=== PATIENT | male | born 1950 | race Caucasian/White ===

== ENCOUNTER 2024-06-03 10:49 | Emergency (ER) | payer BC, SELFPAY ==
--- NOTE | ~2024-06-03 | XR_ITS ---
EXAMINATION: XR chest 2V DATE: 06/03/2024 15:08 INDICATION: Cough. TECHNIQUE: Frontal and lateral views of the chest were obtained. COMPARISON: None. FINDINGS: There are airspace opacities at left lung base. No pleural effusion or pneumothorax. The he art size is normal. IMPRESSION: 1. Airspace opacities at left lung base, consistent with atelectasis versus pneumonia. Reviewed, dictated and finalized at location A. [facility] IMPRESSION: 1. Airspace opacities at left lung base, consistent with atelectasis versus pne umonia.
[2024-06-03 10:51] VITALS: BP 137/68; PULSE 76; RESP 16; TEMP 36.6; O2SAT 99
--- NOTE | 2024-06-03 14:10 | ECG_ITS ---
Test Date: 2024-06-03 15:20:26 Measurements Intervals [place] Rate: 66 P: 7 [place]: 209 QRS: 2 QRSD: 114 T: 6 QT: 318 QTc: 335 Interpretive Statements SINUS RHYTHM LOW QRS VOLTAGE IN PRECORDIAL LEADS [QRS DEFLECTION < 1.0 mV IN CHEST LEADS] No previous ECG available for comparison Electronically Signed On 06-07-2024 14:34:08 PILOT SUPERVISOR by Rodolfo Cadena M.D.
--- NOTE | 2024-06-03 14:12 | ED_ITS ---
HPI - URI/Sore Throat General Chief Complaint: Upper Respiratory Infection <Angela Ernst PA-C - Last Filed: 06/03/24 14:13> Stated Complaint: COUGH,CONGESTION X 1WK <Angela Ernst PA-C - Last Filed: 06/03/24 14:13> Time Seen by Provider: 06/03/24 14:49 <Angela Ernst PA-C - Last Filed: 06/03/24 14:13> Focused HPI: 74-year-old male presents to emergency department for URI sx x5 days. Patient is reporting a productive cough and coughing since the cause him to be short of breath. Alsp reported localized body aches. No fevers. Denies chest pain or lower extremity edema. States he has been around his sister who is sick with similar symptoms. GENERAL: Well-appearing, well-nourished, and in no acute distress. HEAD: Normocephalic, atraumatic. CHEST: Clear to auscultation. ?No respiratory distress. HEART: Regular rate and rhythm.? NEURO: ?Alert and oriented x3. Patient screened in triage and initial orders placed.? ?Additional care and disposition to be based upon?diagnostic testing and treatment. <Angela Ernst PA-C - Last Filed: 06/03/24 14:13> Source: patient and family () <Kassi Abdullahi MD - Last Filed: 06/06/24 18:08> Mode of arrival: ambulatory <Kassi Abdullahi MD - Last Filed: 06/06/24 18:08> Limitations: no limitations <Kassi Abdullahi MD - Last Filed: 06/06/24 18:08> History of Present Illness HPI Narrative: Agree with the above with the following additions/corrections: No sore throat. At times it was difficult for him to catch his breath after coughing because he was coughin gup a lot of phaglem. This made him briefly short of breath at times. Also having myalgias. He was feeling weak. Tried AlkaSeltzer severe cold. No chest pain or edema. + sick contact (his sister). On very few medications. Only lisinopril-HCTZ and a statin. History of kidney stone (but no kidney dysfunction to his knowledge) and melanoma. No liver issues. No history of DM. History of TIA - no deficits. < Kassi Abdullahi MD - Last Filed: 06/06/24 18:08> Related Data Allergies/Adverse Reactions: Allergies Allergy/AdvReac Type Severity Reaction Status Date / Time No Known Allergies Allergy Mild Verified 06/03/24 10:50 <Angela Ernst PA-C - Last Filed: 06/03/24 14:13> [facility] Past Medical History Medical History: Medical History (Updated 06/06/24 @ 18:02 by Kassi Abdullahi MD) TIA (transient ischemic attack) Melanoma History of renal stone <Angela Ernst PA-C - Last Filed: 06/03/24 14:13> Social History Social History: Social History (Updated 06/06/24 @ 18:02 by Kassi Abdullahi MD) Living arrangements: with family Additional living arrangements comments: <Angela Ernst PA-C - Last Filed: 06/03/24 14:13> Exam 2 Narrative: GENERAL: Well-appearing, well-nourished, and in no acute distress. Seated upright in chair. HEAD: Normocephalic, atraumatic. EYES: Non injected, non icteric ENT: Nares clear, no rhinorrhea or epistaxis. Tacky mucous membranes. . NECK: Supple. CHEST: Speaking in full sentences. No respiratory distress. Lungs clear to auscultation bilaterally without wheezes. HEART: Regular rate and rhythm. . ABDOMEN: Soft, nondistended. EXTREMITIES: Normal range of motion. No bilateral lower extremity edema. SKIN: Warm, dry, no rash. NEURO: No focal deficits. Alert and oriented x3. PSYCH: Normal mood and affect. <Kassi Abdullahi MD - Last Filed: 06/06/24 18:08> Course Vital Signs Vital signs: Vital Signs Temperature 97.9 F 06/03/24 10:51 Pulse Rate 76 06/03/24 10:51 Respiratory Rate 16 06/03/24 10:51 Blood Pressure 137/68 06/03/24 10:51 Pulse Oximetry 99 06/03/24 10:51 Oxygen Delivery Room Air 06/03/24 10:51 Temperature 97.6 F 06/03/24 17:45 Pulse Rate 73 06/03/24 17:45 Respiratory Rate 18 06/03/24 17:45 Blood Pressure 105/67 06/03/24 17:45 Pulse Oximetry 98 06/03/24 17:45 Oxygen Delivery Room Air 06/03/24 15:00 <Angela Ernst PA-C - Last Filed: 06/03/24 14:13> Vital Signs Temperature 97.9 F 06/03/24 10:51 Pulse Rate 76 06/03/24 10:51 Respiratory Rate 16 06/03/24 10:51 Blood Pressure 137/68 06/03/24 10:51 Pulse Oximetry 99 06/03/24 10:51 Oxygen Delivery Room Air 06/03/24 10:51 Temperature 97.6 F 06/03/24 17:45 Pulse Rate 73 06/03/24 17:45 Respiratory Rate 18 06/03/24 17:45 Blood Pressure 105/67 06/03/24 17:45 Pulse Oximetry 98 06/03/24 17:45 Oxygen Delivery Room Air 06/03/24 15:00 <Kassi Abdullahi MD - Last Filed: 06/06/24 18:08> MDM - URI/Sore Throat MDM Narrative Medical decision making narrative: Patient presents iwth URI symptoms x5 days, cough productive of phelgm that left him occcasionally short of breath. Also myalgias. In the emergency department they are afebrile with vital signs within normal limits. CXR with possible PNA and symptoms sound consistent with this so reasonable to treat as such especially given Leukocytosis. CURB-65 score Confusion (No 0, Yes +1): 0 BUN >19mg/dl (No 0, Yes +1) : 1 RR >/= 30 (No 0, Yes +1): 0 SBP <90mmHg or DBP </=60mmHg (No 0, Yes +1): 0 Age >/=65 (No 0, Yes +1): 1 Result = 2 points, moderate risk Recommend inpatient versus outpatient treatment PSI/PORT Score: Pneumonia Severity Index for CAP Age: 74 years Sex (F -10; Male 0): 0 [facility] resident (No 0, Yes +10):0 Neoplastic disease (No 0, Yes +30): 30 (Hx melanoma) Liver disease history (No 0, Yes +20): 0 CHF history (No 0, Yes +10): 0 (and BNP not suggestive of acute heart failure based on reference range of assay) Cerebrovascular disease history (No 0, Yes +10): 10 (TIA) Renal disease history (No 0, Yes +10): 10 (not to his knowledge but Cr elevated today w/o baseline for comparison) Altered mental status (No 0, Yes +20):0 RR >/=30 breaths/min (No 0, Yes +20):0 SBP <90mmHg (No 0, Yes +20):0 Temp <35C (95F) or >39.9C (103.8F) - (No 0, Yes +15):0 Pulse >/=125 beats/min (No 0, Yes +10): 0 pH <7.35 (No 0, Yes +30): 0 BUN >/=30 mg/dL or >/=11mmol/L (No 0, Yes +20): 0 Na <130mmol/L (No 0, Yes +20): 0 Glucose >/=250mg/dl (No 0, Yes +10): 0 Hct <30% (No 0, Yes +10): 0 partial pressure of oxygen <60mmHg (No 0, Yes +10): 0 Pleural effusion on xray (No 0, Yes +10): 0 Result: 125 points, risk class IV, 8.2-9.3% mortality. Moderate risk, recommend inpatient admission. DRIP Score - predicts risk for CAP d/t drug-resistant pathogens Antibiotic use within 60 days (No 0, Yes +2): 0 skilled nursing care resident (No 0, Yes +2): 0 Tube feeding (No 0, Yes +2)0 Prior drug-resistant pneumonia Dx within 1 year (No 0, Yes +2)0 Hospitalization within 60 days (No 0, Yes +1):0 Chronic pulmonary disease (No 0, Yes +1):0 Poor functional status (No 0, Yes +1): 0 H2 dede or PPI within 14 days (No 0, Yes +1): 0 Active wound care at time of admission (No 0, Yes +1): 0 MRSA colonization within 1 year (No 0, Yes +1): 0 Total: 0 Patient given a first dose of IV azithromycin. as well as IV fluid bolus. We did discuss the option of an observation admission however through shared decision-making patient does feel comfortable and confident with discharge and trialing outpatient PO therapy. This is also reasonable as he is otherwise well appearing, nontoxic and not with significant weakness. .He is prescribed OTC analgesic meds as well as azithromycin and advised to follow up with his PCP. He is due to have a follow up appointmetn with them shortly. advised following up on labs to assess kidney function as well. He and his verify understanding and are in agreemtn. Aware to return to departmetn for new/worsened/unmanaged symptoms as that may mean a failure of outpatient therapy and need for IV antibiotics/IV fluids. <Kassi Abdullahi MD - Last Filed: 06/06/24 18:08> Differential Diagnosis Differential diagnosis: Likely upper respiratory infection (/acute viral syndrome), viral infection, bronchitis, influenza and other (pNA) <Kassi Abdullahi MD - Last Filed: 06/06/24 18:08> Lab Data Attestation: I reviewed the patient's lab results. <Kassi Abdullahi MD - Last Filed: 06/06/24 18:08> Result diagrams: 06/03/24 14:49 06/03/24 14:49 <Angela Ernst PA-C - Last Filed: 06/03/24 14:13> Labs: Lab Results 06/03/24 06/03/24 Range/Units 14:48 14:49 WBC 11.9 H (4.5-10.0) K/mm3 RBC 5.39 (4.6-6.20) M/mm3 Hgb 16.7 (14.0-18.0) g/dL Hct 48.8 (42.0-52.0) % MCV 90.5 (80-100) fl MCH 31.0 (26-34) pg MCHC 34.2 (32-36) g/dl RDW 12.4 (11.5-14.5) % Plt Count 312 (150-375) k/mm3 MPV 10.1 (7.4-10.4) fl Immature Gran % (Auto) 0.3 (0-0.5) % Neut % (Auto) 81.3 H (45.5-73.1) % Lymph % (Auto) 8.2 L (18.3-44.2) % [place] % (Auto) 9.5 H (2.6-8.5) % Eos % (Auto) 0.3 (0-4.4) % Baso % (Auto) 0.4 (0.2-1.2) % Lymph # (Auto) 0.98 (0.9-3.2) K/mm3 [place] # (Auto) 1.1 H (0.1-0.6) K/mm3 Eos # (Auto) 0.0 (0-0.3) K/mm3 Baso # (Auto) 0.1 (0.0-0.1) K/mm3 Abs Immat Gran (auto) 0.04 H (0.00-0.031) K/mm3 Absolute Neuts (auto) 9.7 H (1.3-6.7) K/mm3 Absolute Nucleated RBC 0.000 (0.0-0.012) K/mm3 Nucleated RBC % 0.0 (0.0-0.2) % Sodium 136 L (137-145) mmol/L Potassium 3.4 (3.4-5.0) mmol/L Chloride 98 (98-107) mmol/L Carbon Dioxide 34 H (22-30) mmol/L Anion Gap 4 (4-12) mmol/L BUN 29 H (9-20) mg/dL Creatinine 1.60 H (0.7-1.3) mg/dL Estim Creat Clear Calc 40 ml/min Estimated GFR 42 L (59 - ) Glucose 104 (65-110) mg/dL Calcium 9.4 (8.4-10.2) mg/dL Total Bilirubin 1.1 (0.2-1.3) mg/dL AST 25 (17-59) U/L ALT 17 (6-50) U/L Alkaline Phosphatase 84 (38-126) U/L NT-Pro-B Natriuret Pep 396 H (19.9-100) pg/mL Total Protein 8.0 (6.3-8.2) g/dL Albumin 4.0 (3.5-5.1) g/dL Influenza A (RT-PCR) Negative (Negative) Influenza B (RT-PCR) Negative (Negative) RSV (RT-PCR) Negative (Negative) SARS-CoV-2 RNA (RT-PCR) Negative (Negative) <Angela Ernst PA-C - Last Filed: 06/03/24 14:13> Lab Results 06/03/24 06/03/24 Range/Units 14:48 14:49 WBC 11.9 H (4.5-10.0) K/mm3 RBC 5.39 (4.6-6.20) M/mm3 Hgb 16.7 (14.0-18.0) g/dL Hct 48.8 (42.0-52.0) % MCV 90.5 (80-100) fl MCH 31.0 (26-34) pg MCHC 34.2 (32-36) g/dl RDW 12.4 (11.5-14.5) % Plt Count 312 (150-375) k/mm3 MPV 10.1 (7.4-10.4) fl Immature Gran % (Auto) 0.3 (0-0.5) % Neut % (Auto) 81.3 H (45.5-73.1) % Lymph % (Auto) 8.2 L (18.3-44.2) % [place] % (Auto) 9.5 H (2.6-8.5) % Eos % (Auto) 0.3 (0-4.4) % Baso % (Auto) 0.4 (0.2-1.2) % Lymph # (Auto) 0.98 (0.9-3.2) K/mm3 [place] # (Auto) 1.1 H (0.1-0.6) K/mm3 Eos # (Auto) 0.0 (0-0.3) K/mm3 Baso # (Auto) 0.1 (0.0-0.1) K/mm3 Abs Immat Gran (auto) 0.04 H (0.00-0.031) K/mm3 Absolute Neuts (auto) 9.7 H (1.3-6.7) K/mm3 Absolute Nucleated RBC 0.000 (0.0-0.012) K/mm3 Nucleated RBC % 0.0 (0.0-0.2) % Sodium 136 L (137-145) mmol/L Potassium 3.4 (3.4-5.0) mmol/L Chloride 98 (98-107) mmol/L Carbon Dioxide 34 H (22-30) mmol/L Anion Gap 4 (4-12) mmol/L BUN 29 H (9-20) mg/dL Creatinine 1.60 H (0.7-1.3) mg/dL Estim Creat Clear Calc 40 ml/min Estimated GFR 42 L (59 - ) Glucose 104 (65-110) mg/dL Calcium 9.4 (8.4-10.2) mg/dL Total Bilirubin 1.1 (0.2-1.3) mg/dL AST 25 (17-59) U/L ALT 17 (6-50) U/L Alkaline Phosphatase 84 (38-126) U/L NT-Pro-B Natriuret Pep 396 H (19.9-100) pg/mL Total Protein 8.0 (6.3-8.2) g/dL Albumin 4.0 (3.5-5.1) g/dL Influenza A (RT-PCR) Negative (Negative) Influenza B (RT-PCR) Negative (Negative) RSV (RT-PCR) Negative (Negative) SARS-CoV-2 RNA (RT-PCR) Negative (Negative) <Kassi Abdullahi MD - Last Filed: 06/06/24 18:08> ABG Data ABG results: 06/03/24 17:15 Puncture Site Right radial ABG pH 7.473 H ABG pCO2 38.4 ABG pO2 72.9 L ABG PO2/FiO2 Ratio 3.47 ABG HCO3 27.5 H ABG O2 Saturation 95.6 ABG O2 Content 22.8 H ABG Base Excess 3.8 A-a Gradient 30.8 Oxyhemoglobin 94.3 Total Hemoglobin 17.2 O2 Delivery Device Not Reportable O2 Liters/Min Not Reportable FiO2 21 <Angela Ernst PA-C - Last Filed: 06/03/24 14:13> 06/03/24 17:15 Puncture Site Right radial ABG pH 7.473 H ABG pCO2 38.4 ABG pO2 72.9 L ABG PO2/FiO2 Ratio 3.47 ABG HCO3 27.5 H ABG O2 Saturation 95.6 ABG O2 Content 22.8 H ABG Base Excess 3.8 A-a Gradient 30.8 Oxyhemoglobin 94.3 Total Hemoglobin 17.2 O2 Delivery Device Not Reportable O2 Liters/Min Not Reportable FiO2 21 <Kassi Abdullahi MD - Last Filed: 06/06/24 18:08> Imaging Data Radiologist's impression: Impressions Chest X-Ray 06/03/24 15:09 IMPRESSION: 1. Airspace opacities at left lung base, consistent with atelectasis versus pneumonia. <Kassi Abdullahi MD - Last Filed: 06/06/24 18:08> ECG Data EKG #1: Attestation: I personally reviewed and interpreted this ECG as follows: < Kassi Abdullahi MD - Last Filed: 06/06/24 18:08> ECG completion date: 06/03/24 <Kassi Abdullahi MD - Last Filed: 06/06/24 18:08> ECG completion time: 15:20 <Kassi Abdullahi MD - Last Filed: 06/06/24 18:08> Interpretation: Normal sinus rhythm at a rate of 66 beats per minute. MS interval 209, prolonged consistent with a first-degree AV block. QRS 114. QT/QTC 318/332. Poor R-wave progression across the precordial leads. T-wave inversion in lead 3 but otherwise normal contiguous 2 and AVF. Incomplete RBBB given QRS less [id number]; RSR' M-shaped pattern in V1-V3; wide, slurred S wave in lateral leads (I, aVL, V5-6) <Kassi Abdullahi MD - Last Filed: 06/06/24 18:08> Discharge Plan Discharge Clinical Impression: Pneumonia, MAR (acute kidney injury) <MILENA Harris Last Filed: 06/03/24 14:13> Patient Disposition: Home, Self-Care <MILENA Harris Last Filed: 06/03/24 14:13> Condition: Stable <MILENA Harris Last Filed: 06/03/24 14:13> Instructions: Antibiotic Form, Acute Kidney Injury (DC), Pneumonia (ED) <MILENA Harris Last Filed: 06/03/24 14:13> Additional Instructions: You have pneumonia. Your BUN and Creatinine were 29 and 1.60 respectively. You received 1 L fluid bolus as well as your 1st dose of antibiotic as IV. The rest of the course of your antibiotic is been prescribed orally. Acetaminophen/Tylenol (maximum 4000 mg per day) is safe to take with NSAIDs (ibuprofen/Motrin) for pain relief. Follow-up with your primary care physician through [facility] at your upcoming appointment. Ask ahead of time if they would like you to get some lab work first to show your kidney function. Return to the emergency department with any new/worsening/unmanaged symptoms <Angela Ernst PA-C - Last Filed: 06/03/24 14:13> Patient Language: Albanian <Angela Ernst PA-C - Last Filed: 06/03/24 14:13> Prescriptions: New azithromycin [Zithromax] 250 mg tablet 250 mg PO DAILY 4 Days Qty: 4 0RF Rx Instructions: start on day 2 of therapy ibuprofen 600 mg tablet 600 mg PO TID PRN (Reason: pain) Qty: 30 0RF acetaminophen 500 mg capsule 1,000 mg PO Q6H PRN (Reason: pain) Qty: 30 0RF <Angela Ernst PA-C - Last Filed: 06/03/24 14:13> Follow-up/Referrals: PHYSICIAN NOT ON STAFF,NONSTAFF [Non-Staff] - <Angela Ernst PA-C - Last Filed: 06/03/24 14:13> Time of Disposition: 18:04 <Angela Ernst PA-C - Last Filed: 06/03/24 14:13> 18:04 <Kassi Abdullahi MD - Last Filed: 06/06/24 18:08>
[2024-06-03 14:55] LABS: Basophils Absolute Auto 0.1 K/mm3 (0.0-0.1); Basophils Percent Auto 0.4 % (0.2-1.2); Eosinophils Percent Auto 0.3 % (0-4.4); Hematocrit 48.8 % (42.0-52.0); Hemoglobin 16.7 g/dL (14.0-18.0); Immature Granulocyte Absolute 0.04 K/mm3 (0.00-0.031); Immature Granulocyte Percent A 0.3 % (0-0.5); Lymphocytes Absolute Auto 0.98 K/mm3 (0.9-3.2); Lymphocytes Percent Auto 8.2 % (18.3-44.2); Mean Corpuscular HGB Conc 34.2 g/dl (32-36); Mean Corpuscular Volume 90.5 fl (80-100); Mean Platelet Volume 10.1 fl (7.4-10.4); Monocytes Absolute Auto 1.1 K/mm3 (0.1-0.6); Monocytes Percent Auto 9.5 % (2.6-8.5); Neutrophils Absolute Auto 9.7 K/mm3 (1.3-6.7); Neutrophils Percent Auto 81.3 % (45.5-73.1); Platelet Count Result 312 k/mm3 (150-375); Red Blood Count 5.39 M/mm3 (4.6-6.20); Red Cell Distribution Width 12.4 % (11.5-14.5); White Blood Count 11.9 K/mm3 (4.5-10.0)
[2024-06-03 15:06] LABS: Alanine Aminotransferase 17 U/L (6-50); Alkaline Phosphatase 84 U/L (38-126); Anion Gap 4 mmol/L (4-12); Aspartate Amino Transferase 25 U/L (17-59); Bilirubin,Total 1.1 mg/dL (0.2-1.3); Blood Urea Nitrogen 29 mg/dL (9-20); Calcium 9.4 mg/dL (8.4-10.2); Carbon Dioxide 34 mmol/L (22-30); Chloride 98 mmol/L (98-107); Estimated CRCL calculation 40 ml/min; Estimated Glomerular Filt Rate 42; Glucose 104 mg/dL (65-110); Potassium 3.4 mmol/L (3.4-5.0); Sodium 136 mmol/L (137-145)
[2024-06-03 15:30] LABS: Influenza A QL RT-PCR Negative (Negative); Influenza B QL RT-PCR Negative (Negative); RSV RNA, RT-PCR Negative (Negative); SARS-CoV-2 RNA PCR Negative (Negative)
[2024-06-03 16:00] VITALS: BP 110/66; PULSE 78; RESP 18; TEMP 36.6; O2SAT 97
[2024-06-03 17:19] LABS: Alveolar/Arterial O2 Gradient 30.8 mmHg; Base Excess ABG 3.8 mEq/l (+/-2.0); Fractional Inspired Oxygen 21 %; HCO3 ABG 27.5 mEq/l (22.0-26.0); Modified Allen's Test Pass; Oxygen Content ABG 22.8 %vol (16.0-22.0); Oxygen Saturation ABG 95.6 % (95.0-100.0); Oxyhemoglobin 94.3 % THb (90.0-100.0); PCO2 ABG 38.4 mmHg (35.0-45.0); PO2 ABG 72.9 mmHg (80.0-100.0); PO2 FiO2 Ratio Arterial Blood 3.47 %; Site Drawn RIGHT RADIAL; Total Hemoglobin 17.2 g/dL (12.0-18.0); pH ABG 7.473 (7.350-7.450)
[2024-06-03] MEDS: SODIUM CHLORIDE 0.9% IV 1,000 ML 999 ML IV CONT (17:27)
[2024-06-03 17:28] LABS: NT Pro B Type Natriuretic Pept 396 pg/mL (19.9-100)
[2024-06-03] MEDS: AZITHROMYCIN 500 MG/NS 250 ML 500 MG/250 ML BAG 250 MG IVPB (17:28)
[2024-06-03 17:45] VITALS: BP 105/67; PULSE 73; RESP 18; TEMP 36.4; O2SAT 98
== END 2024-06-03 18:48 | disposition home or self-care (01) ==
PROVIDERS: Physician Assistant; Emergency Provider Student in an Organized Health Care Education/Training Program
DX: J18.9 Pneumonia, unspecified organism (principal); N17.9 Acute kidney failure, unspecified; Z20.822 Contact with and (suspected) exposure to COVID-19; R06.02 Shortness of breath; Z85.820 Personal history of malignant melanoma of skin; Z86.73 Personal history of transient ischemic attack (TIA), and cerebral infarction without residual deficits; Z87.442 Personal history of urinary calculi
CPT/HCPCS: 36415; 36600; 71046; 80053; 82805; 83880; 85018; 85025; 87637; 93005; 96365; 99284; J0456; J7030